=== PATIENT | female | born 1940 | race Two or more races ===

== ENCOUNTER 2018-06-14 09:01 | Emergency (ER) | payer OTHER, MEDICARE ==
[~2018-06-14] VITALS: Ht 160 cm; Wt 73.5 kg
[2018-06-14 09:09] VITALS: BP 203/96
--- NOTE | 2018-06-14 09:45 | NUR ---
CANE PROVIDED, Patient discharged to home in stable condition. Written and verbal after care instructions given. Patient verbalizes understanding of instruction.
== END 2018-06-14 09:47 | disposition home or self-care (01) ==
LOC: ER 09:09
DX: S80.01XA Contusion of right knee, initial encounter (principal); I10 Essential (primary) hypertension; J45.909 Unspecified asthma, uncomplicated; E11.9 Type 2 diabetes mellitus without complications; W22.8XXA Striking against or struck by other objects, initial encounter; Y93.89 Activity, other specified; Y92.89 Other specified places as the place of occurrence of the external cause; Y99.8 Other external cause status
CPT/HCPCS: Z7502

== ENCOUNTER 2019-01-20 23:36 | Emergency (ER) | payer OTHER, MEDICAID ==
[~2019-01-20] VITALS: Ht 160 cm; Wt 73.5 kg
[2019-01-20] MEDS ORDERED: ONDANSETRON HCL/PF 4 MG/2 ML VIAL ONE (23:57)
[2019-01-20] MEDS ORDERED: hydrALAZINE HCL IV 20 MG VIAL ONE (23:57)
[2019-01-20] MEDS ORDERED: MORPHINE SULFATE INJ 4 MG/ML DISP.SYRIN ONE (23:57)
[2019-01-21 00:03] LABS: BASOPHILS # (AUTO) 0.1 /CMM (0.0-0.2); BASOPHILS % (AUTO) 0.9 % (0.0-2.0); HEMATOCRIT 47 % (33-45); HEMOGLOBIN 15.7 g/dL (11.5-14.8); LYMPHOCYTES # (AUTO) 2.2 /CMM (0.8-4.8); LYMPHOCYTES % (AUTO) 22.2 % (20.0-44.0); MEAN CORPUSCULAR HGB CONC 33 g/dl (31.0-36.0); MEAN CORPUSCULAR VOLUME 89 fL (82-100); MONOCYTES % (AUTO) 10.3 % (2.0-12.0); NEUTROPHILS # (AUTO) 6.4 /CMM (1.8-8.9); NEUTROPHILS % (AUTO) 63.6 % (43.0-81.0); PLATELET COUNT (AUTO) 307 /CMM (150-450); RED BLOOD CELL COUNT(AUTO) 5.31 MIL/uL (4.0-5.2)
[2019-01-21 00:04] LABS: APPEARANCE,URINE Clear (CLEAR); BILIRUBIN,URINE Negative (NEGATIVE); BLOOD, URINE Negative Ery/uL (NEGATIVE); COLOR,URINE Yellow (YELLOW); KETONES,URINE Negative (NEGATIVE); LEUKOCYTE ESTERASE ,URINE Trace (NEGATIVE); NITRITE, URINE Negative (NEGATIVE); PROTEIN,URINE Negative (NEGATIVE); UGLUCOSE Negative (NEGATIVE); UROBILINOGEN,URINE 0.2 EU/dL (0.2)
[2019-01-21] MEDS: hydrALAZINE HCL IV 20 MG VIAL IV ONE (00:12)
[2019-01-21] MEDS: ONDANSETRON HCL/PF 4 MG/2 ML VIAL IV ONE (00:13)
[2019-01-21] MEDS: MORPHINE SULFATE INJ 2 MG/ML DISP.SYRIN IV ONE (00:13)
[2019-01-21 00:14] LABS: CALCIUM, SERUM 11.6 mg/dL (8.5-10.1); CREATININE 1.3 mg/dL (0.6-1.3); POTASSIUM 3.8 mmol/L (3.5-5.1)
[2019-01-21] MEDS ORDERED: FUROSEMIDE 40 MG/4 ML VIAL ONE (00:16)
--- NOTE | 2019-01-21 00:16 | NUR ---
BIBDAUGHTER FROM HOME TO ER BED 9. PT IS [place] SPEAKING W/ DAUGHTER TO TRANSLATE. AAOX4. PT NOTESD GASPING AND TACHYPNEIC. AMBULATORY. C/O HIGH BP, HEADACHE, DIZZYNESS AND NAUSEA. PT DAUGHTER, PT'S BP HAS BEEN ELEVATED FOR THE PAST WEEK AND GETTING WORST IN THE PAST 2 DAYS. PT WAS STARTED ON BENAZAPRIL ON 01/14/19 BUT PT ONLY TOOK IS ONCE BECAUSE SHE DOES NOT LIKE HOW THE MEDICATION MAKES HER FEEL. FROM THEN SHE ONLY TOOK THE BENAZAPRIL 30MIN [employer]ER. PT'S BP WAS NOTED AT 253/81. 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 LASIX AND HYDRALAZINE EARLIER THIS EVENING AROUNG 8PM.PT REPORTS HEADACHE AT HE BACK OF THE HEADM, 9/10 TROBBING AND PRESSURE. SHE ALSO C/O DIZZYNESS AND NAUSEA. PT PLACED ON O2 VIA NC @ 2 LPM. WAS AT BEDSIDE FOR EVAL. ORDERS RECEIVED, NOTED AND CARRIED OUT. IV LINE WAS OBTAINED ON THE R AC 18G, BLOOD DRAWN AND GIVEN TO [employer] SERVICES ADMINISTRATOR AT BEDSIDE. EKG DONE AT BEDSIDE WELL. WILL CONTINUE TO MONITOR PT
[2019-01-21 00:19] LABS: ALBUMIN 3.9 g/dL (3.4-5.0); BILIRUBIN,DIRECT 0.1 mg/dL (0.0-0.2); BILIRUBIN,TOTAL 0.4 mg/dL (0.2-1.0); TOTAL PROTEIN, SERUM 7.6 g/dL (6.4-8.2)
[2019-01-21] MEDS: FUROSEMIDE 40 MG/4 ML VIAL IV ONE (00:38)
--- NOTE | 2019-01-21 00:38 | NUR ---
PT BACK FROM CT
[2019-01-21 01:19] LABS: BACTERIA,URINE Few /HPF (None Seen); RBC,URINE 0-2 /HPF (0-2); SQUAMOUS EPITHELIAL CELL,UR Few /HPF (None Seen)
--- NOTE | 2019-01-21 01:37 | NUR ---
Patient discharged to home in stable condition. Written and verbal after care instructions given. Patient verbalizes understanding of instruction. IV removed. Catheter intact and site benign. Pressure and 4x4 applied to site. No bleeding noted. Pt ambulatory with a steady gait
[2019-01-21 01:38] VITALS: BP 145/53
== END 2019-01-21 01:39 | disposition home or self-care (01) ==
LOC: ER 23:39
DX: I16.0 Hypertensive urgency (principal); Z91.14 Patient's other noncompliance with medication regimen; J45.909 Unspecified asthma, uncomplicated; E11.9 Type 2 diabetes mellitus without complications; M81.0 Age-related osteoporosis without current pathological fracture
CPT/HCPCS: 36415; 70450; 71045; 80048; 80076; 81001; 84484; 85025; 85730; 87086; 93005; 96374; 96375; 99284; J0360; J1940; J2270; J2405; 81000-TC